=== PATIENT | male | born 1995 | race Caucasian/White ===

== ENCOUNTER 2021-11-30 14:56 | Emergency (ER) | payer OTHER ==
[~2021-11-30] VITALS: Ht 177.8 cm; Wt 100.0 kg
[2021-11-30 15:16] VITALS: BP 134/76
[2021-11-30] MEDS ORDERED: LORA10CA PO (15:20)
[2021-11-30] MEDS ORDERED: IBUP-2029 MT (15:31)
[2021-11-30] MEDS ORDERED: TOPUD MT (15:31)
== END 2021-11-30 15:41 | disposition home or self-care (01) ==
LOC: ER 14:56
DX: S09.8XXA Other specified injuries of head, initial encounter (principal); J45.909 Unspecified asthma, uncomplicated; W22.8XXA Striking against or struck by other objects, initial encounter; Y93.89 Activity, other specified; Y92.89 Other specified places as the place of occurrence of the external cause; Y99.8 Other external cause status
CPT/HCPCS: 99282